=== PATIENT | female | born 1985 | race American Indian/Alaskan Native ===

== ENCOUNTER 2016-11-04 18:51 | Emergency (ER) | payer OTHER ==
[2016-11-04 20:10] VITALS: BP 130/86
[2016-11-04] MEDS ORDERED: NORCO 5/325 PO ONE (20:47)
[2016-11-04] MEDS ORDERED: MOTRIN PO ONE (20:47)
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
--- NOTE | 2016-11-05 09:50 | XRay Report ---
Right hand 3 views: History: Impact, pain. Findings: There is fracture noted diaphysis of fifth metacarpal right hand. No dislocations. Impression: Fracture fifth metacarpal.
== END 2016-11-04 22:30 | disposition home or self-care (01) ==
LOC: ED 18:51
DX: S62.306A Unspecified fracture of fifth metacarpal bone, right hand, initial encounter for closed fracture (principal); F41.9 Anxiety disorder, unspecified; F32.9 Major depressive disorder, single episode, unspecified; F17.200 Nicotine dependence, unspecified, uncomplicated; Y04.2XXA Assault by strike against or bumped into by another person, initial encounter; Y93.89 Activity, other specified; Y92.89 Other specified places as the place of occurrence of the external cause; Y99.8 Other external cause status

== ENCOUNTER 2017-12-08 11:24 | Emergency (ER) | payer OTHER ==
[2017-12-08 11:31] VITALS: BP 134/95
--- NOTE | 2017-12-08 12:47 | Emergency Department Report ---
Chief Complaint: Nausea/Vomiting/Diarrhea Stated Complaint: RIGHT FLANK PAIN Time Seen by Provider: 12/08/17 12:42 - HPI History of Present Illness: 32-year-old [place] female presents to the emergency department with a two- week history of nausea and vomiting. More recently she also has a little bit of flank and upper abdominal pain. Patient has concern that she could be as she says that she took 2 tests at home and one was negative and the other was positive. She thinks that her last menstrual cycle was at the end of November but says that it was shorter and less significant than usual. She denies any other past mental history. No fever, vaginal bleeding or discharge, or dysuria. - ROS Review of Systems: Positive for nausea and vomiting, abdominal discomfort Negative for vaginal bleeding or discharge, dysuria, fever, back pain. - Exam Vital Signs: Vital Signs 12/08/17 11:29 Temperature 98.2 F Pulse Rate 66 Respiratory 18 Rate Blood Pressure 134/95 O2 Sat by Pulse 100 Oximetry Physical Exam: Heart and lungs sounds normal auscultation. No abdominal pain to palpation. She is awake and alert. MSE screening note: Focused history and physical exam performed. Due to findings the following was ordered: Patient will have a CBC, CMP, urinalysis and urine test. She'll be reevaluated on the fast track side. ED Disposition for MSE Condition: Stable Referrals: PRIMARY CARE [Primary Care Provider] - 3-5 Days
[2017-12-08 13:46] LABS: HCG Qualitative,Urine Negative (Negative)
[2017-12-08 13:50] LABS: Bilirubin,Urine NEG (Negative); Blood,Urine SM (Negative); Color,Urine Yellow (Yellow); Mucus,Urine 3+ /HPF; Urobilinogen,Urine < 2.0 mg/dL (<2.0)
== END 2017-12-08 16:58 ==
LOC: ED 11:24
DX: R11.2 Nausea with vomiting, unspecified (principal); R19.7 Diarrhea, unspecified; R10.10 Upper abdominal pain, unspecified
CPT/HCPCS: 36415; 81001; 81025; 84702; 99283

== ENCOUNTER 2017-12-10 21:15 | Emergency (ER) | payer OTHER ==
[2017-12-10 22:19] VITALS: BP 116/86
[2017-12-10 22:42] LABS: Basophils % (Auto) 0.4 % (0.0-1.8); Eosinophils # (Auto) 0.1 K/mm3 (0.0-0.4); Hematocrit 38.9 % (30.3-42.9); Hemoglobin 13.4 gm/dl (10.1-14.3); Lymphocytes # (Auto) 1.7 K/mm3 (1.2-5.4); Lymphocytes % (Auto) 17.2 % (13.4-35.0); Mean Corpuscular HGB Conc 34 % (30-34); Mean Corpuscular Hemoglobin 29 pg (28-32); Mean Corpuscular Volume 84 fl (79-97); Monocytes # (Auto) 0.9 K/mm3 (0.0-0.8); Monocytes % (Auto) 8.9 % (0.0-7.3); Platelet Count 288 K/mm3 (140-440); Red Blood Count 4.62 M/mm3 (3.65-5.03); Red Cell Distribution Width 16.8 % (13.2-15.2)
[2017-12-10 22:54] LABS: Alanine Aminotransferase 11 units/L (7-56); Albumin 4.4 g/dL (3.9-5); BUN/Creatinine Ratio 16; Blood Urea Nitrogen 16 mg/dL (7-17); Calcium 9.1 mg/dL (8.4-10.2); Hemolysis Index 3
[2017-12-10 23:07] LABS: HCG Qualitative,Urine Negative (Negative)
[2017-12-10 23:11] LABS: Bacteria,Urine 1+ /HPF (Negative); Bilirubin,Urine NEG (Negative); Blood,Urine NEG (Negative); Color,Urine Yellow (Yellow); Mucus,Urine 3+ /HPF
== END 2017-12-10 22:28 | disposition left against medical advice (07) ==
LOC: ED 21:15
DX: R10.9 Unspecified abdominal pain (principal); R42 Dizziness and giddiness; R11.0 Nausea; Z53.21 Procedure and treatment not carried out due to patient leaving prior to being seen by health care provider
CPT/HCPCS: 36415; 80053; 81001; 81025; 85025

== ENCOUNTER 2018-11-02 12:45 | Emergency (ER) | payer OTHER ==
[2018-11-02 12:53] VITALS: BP 154/96
[2018-11-02] MEDS ORDERED: IBUPROFEN PO ONE (13:23)
--- NOTE | 2018-11-02 13:50 | XRay Report ---
RIGHT SHOULDER, 3 VIEWS: HISTORY: right shoulder pain. Normal bone mineralization. No acute osseous injury or joint pathology is detected. The soft tissues are unremarkable. IMPRESSION: Right shoulder within normal limits.
--- NOTE | 2018-11-02 13:50 | XRay Report ---
RIGHT KNEE, 3 views: History: Right knee pain. The bony architecture is intact without evidence of fracture or dislocation. No significant soft tissue abnormality is seen. IMPRESSION: Normal right knee.
--- NOTE | 2018-11-02 15:35 | Emergency Department Report ---
ED Extremity Problem HPI - General Chief complaint: Weakness Stated complaint: RT SIDE WEAKNESS Time Seen by Provider: 11/02/18 13:10 Source: patient Mode of arrival: Ambulatory Limitations: No Limitations - History of Present Illness Initial comments: Patient is a 33-year-old female who is here complaining of pain to her right knee and right shoulder. Patient states this started last night. Patient cannot identify a cause. She states she has not had any slips falls. Patient states that she occasionally will have pain in her right knee is similar to pain she has today. Patient states when she bends her knee she feels a clicking sensation. Patient denies any cough cold congestion fevers chills rash or nausea vomiting. Patient states the pain is 8 out of 10 in severity in both joints. Patient states that her range of motion is less secondary to pain. Severity scale (0 -10): 6 - Related Data Previous Rx's Medication Instructions Recorded Last Taken Type Cyclobenzaprine [Flexeril] 10 mg PO TID PRN #20 tablet 11/04/16 Unknown Rx HYDROcodone/APAP 5-325 [[place] 1 - 2 each PO Q6HR PRN #30 tablet 11/04/16 Unknown Rx 5/325] Ibuprofen [Ibu] 800 mg PO Q8H PRN #20 tablet 11/02/18 Unknown Rx traMADol [Ultram] 50 mg PO Q6HR PRN #12 tablet 11/02/18 Unknown Rx Allergies Allergy/AdvReac Type Severity Reaction Status Date / Time Penicillins Allergy Rash Verified 11/02/18 12:47 ED Review of Systems ROS: Stated complaint: RT SIDE WEAKNESS Other details as noted in HPI Comment: All other systems reviewed and negative ED Past Medical Hx - Past Medical History Hx Psychiatric Treatment: Yes (Depression, Anxiety) - Surgical History Past Surgical History?: No - Social History Smoking Status: Current Every Day Smoker Substance Use Type: None - Medications Home Medications: Home Medications Medication Instructions Recorded Confirmed Last Taken Type Cyclobenzaprine [Flexeril] 10 mg PO TID PRN #20 tablet 11/04/16 Unknown Rx HYDROcodone/APAP 5-325 [[place] 1 - 2 each PO Q6HR PRN #30 tablet 11/04/16 Unknown Rx 5/325] Ibuprofen [Ibu] 800 mg PO Q8H PRN #20 tablet 11/02/18 Unknown Rx traMADol [Ultram] 50 mg PO Q6HR PRN #12 tablet 11/02/18 Unknown Rx ED Physical Exam - General Limitations: No Limitations General appearance: alert, in no apparent distress - Head Head exam: Present: atraumatic, normocephalic - Eye Eye exam: Present: normal appearance - ENT ENT exam: Present: mucous membranes moist - Neck Neck exam: Present: normal inspection - Respiratory Respiratory exam: Present: normal lung sounds bilaterally. Absent: respiratory distress, wheezes, rales, rhonchi - Cardiovascular Cardiovascular Exam: Present: regular rate, normal rhythm. Absent: systolic murmur, diastolic murmur, rubs, gallop - GI/Abdominal GI/Abdominal exam: Present: soft, normal bowel sounds. Absent: distended, tenderness, guarding - Extremities Exam Extremities exam: Present: normal inspection, other (patient is walking with a lap however she has full range of motion to the right knee. There is no swelling erythema warmth. There is no crepitus. Patient has a normal exam to the right shoulder as well will full range of motion.) - Back Exam Back exam: Present: normal inspection - Neurological Exam Neurological exam: Present: alert, oriented X3 - Psychiatric Psychiatric exam: Present: normal affect, normal mood - Skin Skin exam: Present: warm, dry, intact, normal color. Absent: rash ED Course Vital Signs 11/02/18 11/02/18 12:51 13:20 Temperature 98.0 F Pulse Rate 79 Respiratory 18 18 Rate Blood Pressure 154/96 O2 Sat by Pulse 100 Oximetry ED Medical Decision Making - Radiology Data X-ray of the right shoulder right knee are within normal limits. - Medical Decision Making Patient has a essentially normal physical exam to her joints however she is having joint pain. Patient states pain started last night she cannot think of a reason why. Patient will be referred to orthopedics. No life-threatening emergency has been found. The emergency department. Critical care attestation.: If time is entered above; I have spent that time in minutes in the direct care of this critically ill patient, excluding procedure time. ED Disposition Clinical Impression: Arthropathy Disposition: DC-01 TO HOME OR SELFCARE Is pt being admited?: No Does the pt Need Aspirin: No Condition: Stable Instructions: Musculoskeletal Pain (ED), RICE Therapy (ED) Referrals: SERGE MEJIA MD [Staff Physician] - 3-5 Days Time of Disposition: 15:35
== END 2018-11-02 16:02 | disposition home or self-care (01) ==
LOC: ED 12:45
DX: M12.9 Arthropathy, unspecified (principal); F32.9 Major depressive disorder, single episode, unspecified; F41.9 Anxiety disorder, unspecified; F17.200 Nicotine dependence, unspecified, uncomplicated; Z88.0 Allergy status to penicillin
CPT/HCPCS: 99283

== ENCOUNTER 2019-01-16 17:59 | Emergency (ER) | payer OTHER ==
--- NOTE | 2019-01-16 18:13 | Emergency Department Report ---
Blank Doc - Documentation Documentation: This is a 33-year-old female that presents with intermittent headaches x1 week. Denies any head trauma or injuries. Denies any blurry vision. Denies any n/v. Denies any other complaints or symptoms. Exam: normal neuro exam This initial assessment/diagnostic orders/clinical plan/treatment(s) is/are subject to change based on patient's health status, clinical progression and re- assessment by fellow clinical providers in the ED. Further treatment and workup at subsequent clinical providers discretion. Patient/guardians urged not to elope from the ED as their condition may be serious if not clinically assessed and managed. Initial orders include: 1- Patient sent to [facility] for further evaluation and treatment
[2019-01-16] MEDS ORDERED: DECADRON IM ONE (20:19)
[2019-01-16] MEDS ORDERED: BENADRYL PO ONE (20:19)
[2019-01-16] MEDS ORDERED: TYLENOL PO ONE (20:19)
[2019-01-16] MEDS ORDERED: REGLAN PO ONE (20:19)
--- NOTE | 2019-01-16 22:01 | Emergency Department Report ---
ED Headache HPI - General Chief Complaint: Headache Stated Complaint: CONSTANT HEADACHE Time Seen by Provider: 01/16/19 18:11 - History of Present Illness Initial Comments: This is a 33-year-old female that presents with intermittent headaches x1 week. Denies any head trauma or injuries. Denies any blurry vision. Denies any n/v. Denies any other complaints or symptoms. hx of occassional headache some location and intensity Timing/Duration: 1 week Quality: moderate, achy, pressure Head Injury Location: frontal, parietal Recent Head Trauma: no recent headache/trauma, occasional headaches Associated Symptoms: denies: fatigue, facial pain, fever/chills, nausea/vomiting, nasal congestion, nasal drainage, numbness in legs/feet, sinus infection, stiff neck, vision changes, weakness Allergies/Adverse Reactions: Allergies Penicillins Allergy (Verified 11/02/18 12:47) Rash Home Medications: Ambulatory Orders Cyclobenzaprine [Flexeril] 10 mg PO TID PRN #20 tablet 11/04/16 HYDROcodone/APAP 5-325 [[place] 5/325] 1 - 2 each PO Q6HR PRN #30 tablet 11/04/16 Ibuprofen [Ibu] 800 mg PO Q8H PRN #20 tablet 11/02/18 traMADol [Ultram] 50 mg PO Q6HR PRN #12 tablet 11/02/18 Acetaminophen [Acetaminophen TAB] 1,000 mg PO Q6HR PRN #30 tablet 01/16/19 Metoclopramide [Reglan] 10 mg PO Q6H PRN #30 tablet 01/16/19 diphenhydrAMINE [Benadryl CAP] 25 mg PO Q6HR PRN #30 capsule 01/16/19 ED Review of Systems ROS: Stated complaint: CONSTANT HEADACHE Other details as noted in HPI Constitutional: denies: chills, fever Eyes: denies: eye pain, eye discharge, vision change ENT: denies: ear pain, throat pain Respiratory: denies: cough, shortness of breath, wheezing Cardiovascular: denies: chest pain, palpitations Endocrine: no symptoms reported Gastrointestinal: denies: abdominal pain, nausea, diarrhea Genitourinary: denies: urgency, dysuria, discharge Musculoskeletal: denies: back pain, joint swelling, arthralgia Skin: denies: rash, lesions Neurological: headache. denies: weakness, numbness, paresthesias, confusion, abnormal gait, vertigo Psychiatric: denies: anxiety, depression Hematological/Lymphatic: denies: easy bleeding, easy bruising ED Past Medical Hx - Past Medical History Previous Medical History?: Yes Hx Psychiatric Treatment: Yes (Depression, Anxiety) - Surgical History Past Surgical History?: No - Social History Smoking Status: Current Every Day Smoker Substance Use Type: None - Medications Home Medications: Home Medications Medication Instructions Recorded Confirmed Last Taken Type Cyclobenzaprine [Flexeril] 10 mg PO TID PRN #20 tablet 11/04/16 Unknown Rx HYDROcodone/APAP 5-325 [[place] 1 - 2 each PO Q6HR PRN #30 tablet 11/04/16 Unknown Rx 5/325] Ibuprofen [Ibu] 800 mg PO Q8H PRN #20 tablet 11/02/18 Unknown Rx traMADol [Ultram] 50 mg PO Q6HR PRN #12 tablet 11/02/18 Unknown Rx Acetaminophen [Acetaminophen TAB] 1,000 mg PO Q6HR PRN #30 tablet 01/16/19 Unknown Rx Metoclopramide [Reglan] 10 mg PO Q6H PRN #30 tablet 01/16/19 Unknown Rx diphenhydrAMINE [Benadryl CAP] 25 mg PO Q6HR PRN #30 capsule 01/16/19 Unknown Rx ED Physical Exam - General Limitations: No Limitations General appearance: alert, in no apparent distress - Head Head exam: Present: atraumatic, normocephalic - Eye Eye exam: Present: normal appearance, PERRL, EOMI, nystagmus. Absent: conjunctival injection, periorbital swelling, periorbital tenderness Pupils: Present: normal accommodation - ENT ENT exam: Present: normal orophraynx, mucous membranes moist, TM's normal bilaterally, normal external ear exam - Neck Neck exam: Present: normal inspection, full ROM. Absent: tenderness, meningismus, lymphadenopathy, thyromegaly - Respiratory Respiratory exam: Present: normal lung sounds bilaterally. Absent: respiratory distress, wheezes, stridor, chest wall tenderness - Cardiovascular Cardiovascular Exam: Present: regular rate, normal rhythm, normal heart sounds. Absent: systolic murmur, diastolic murmur, rubs, gallop - GI/Abdominal GI/Abdominal exam: Present: soft, normal bowel sounds. Absent: distended, tende rness, bruit, hernia - Rectal Rectal exam: Present: deferred - Extremities Exam Extremities exam: Present: normal inspection, full ROM, normal capillary refill - Back Exam Back exam: Present: normal inspection, full ROM. Absent: tenderness, CVA tenderness (R), CVA tenderness (L), muscle spasm, paraspinal tenderness, vertebral tenderness, rash noted - Neurological Exam Neurological exam: Present: alert, oriented X3, CN II-XII intact, normal gait, reflexes normal - Expanded Neurological Exam Expanded Patient oriented to: Present: person, place, time Speech: Present: fluid speech Cranial nerves: EOM's Intact: Normal, Gag Reflex: Normal, Tongue Deviation: Normal, Nystagmus: Normal, Facial Sensation: Normal Cerebellar function: Finger to Nose: Normal, Heel to Romeo: Normal, Romberg: Normal Upper motor neuron: Josh Neglect: Normal, Pronator Drift: Normal, Babinski Sign: Normal, Sensory Extinction: Normal Sensory exam: Upper Extremity Light Touch: Normal, Upper Extremity Pin Prick: Normal, Upper Extremity Temperature: Normal, UE 2 Point Discrimination: Normal, Lower Extremity Light Touch: Normal, Lower Extremity Pin Prick: Normal, Lower Extremity Temperature: Normal, LE 2 Point Discrimination: Normal Motor strength exam: RUE: 5, LUE: 5, RLE: 5, LLE: 5 DTR: bicep (R): 2+, bicep (L): 2+, ankle (R): 2+, ankle (L): 2+ Best Eye Response ([place]): (4) open spontaneously Best Motor Response ([place]): (6) obeys commands Best Verbal Response ([place]): (5) oriented Fredo Total: 15 - Psychiatric Psychiatric exam: Present: normal affect, normal mood - Skin Skin exam: Present: warm, dry, intact, normal color. Absent: rash ED Course Vital Signs 01/16/19 01/16/19 18:11 20:50 Temperature 98.6 F 98.6 F Pulse Rate 65 109 H Respiratory 16 16 Rate Blood Pressure 149/98 Blood Pressure 134/97 [Left] O2 Sat by Pulse 100 Oximetry ED Medical Decision Making - Medical Decision Making this is an acute headache improved with medications given in ed plan dc to home in stable condition pt will follow up wiht pcp in 2-3 days pt given referral to [facility] and Neurology. pt is currently a/o x 3 ambulatory with steady gait at this time headache is pain is 2/10 Critical care attestation.: If time is entered above; I have spent that time in minutes in the direct care of this critically ill patient, excluding procedure time. ED Disposition Clinical Impression: Headache Qualifiers: Headache type: unspecified Headache chronicity pattern: acute headache Intractability: not intractable Qualified Code(s): R51 - Headache Disposition: TO HOME OR SELFCARE Is pt being admited?: No Does the pt Need Aspirin: No Condition: Stable Instructions: Acute Headache (ED) Prescriptions: Acetaminophen [Acetaminophen TAB] 1,000 mg PO Q6HR PRN #30 tablet PRN Reason: Headache diphenhydrAMINE [Benadryl CAP] 25 mg PO Q6HR PRN #30 capsule PRN Reason: Headache Metoclopramide [Reglan] 10 mg PO Q6H PRN #30 tablet PRN Reason: Headache Referrals: [facility] [Outside] - 3-5 Days PANKAJ DAILY MD [Referring] - 3-5 Days Forms: Work/School Release Form(ED) Time of Disposition: 22:00
[2019-01-16 22:26] VITALS: BP 130/87
== END 2019-01-16 22:26 | disposition home or self-care (01) ==
LOC: ED 17:59
DX: R51 Headache (principal); F17.200 Nicotine dependence, unspecified, uncomplicated; Z88.0 Allergy status to penicillin; Z79.899 Other long term (current) drug therapy
CPT/HCPCS: 96372; 99282; J1100

== ENCOUNTER 2019-03-13 23:41 | Emergency (ER) | payer OTHER ==
[2019-03-14] MEDS ORDERED: TYLENOL PO ONE (02:37)
[2019-03-14] MEDS ORDERED: DECADRON IM ONE (02:37)
[2019-03-14] MEDS ORDERED: REGLAN PO ONE (02:37)
[2019-03-14] MEDS ORDERED: BENADRYL PO ONE (02:37)
--- NOTE | 2019-03-14 03:21 | Emergency Department Report ---
ED Headache HPI - General Chief Complaint: Headache Stated Complaint: MIGRAINES AND RIGHT KNEE PAIN Time Seen by Provider: 03/14/19 02:23 - History of Present Illness Initial Comments: Patient 33-year-old female with a history of migraine headaches who presents for headache 2 days frontal there is no photophobia no nausea vomiting headache and usual location duration and intensity patient states she's had Tylenol but no relief denies fall injury or trauma Quality: moderate, sharp Head Injury Location: frontal Recent Head Trauma: occasional headaches Associated Symptoms: denies symptoms Allergies/Adverse Reactions: Allergies Penicillins Allergy (Verified 11/02/18 12:47) Rash Home Medications: Ambulatory Orders Cyclobenzaprine [Flexeril] 10 mg PO TID PRN #20 tablet 11/04/16 HYDROcodone/APAP 5-325 [[place] 5/325] 1 - 2 each PO Q6HR PRN #30 tablet 11/04/16 Ibuprofen [Ibu] 800 mg PO Q8H PRN #20 tablet 11/02/18 traMADol [Ultram] 50 mg PO Q6HR PRN #12 tablet 11/02/18 Acetaminophen [Acetaminophen TAB] 1,000 mg PO Q6HR PRN #30 tablet 01/16/19 Metoclopramide [Reglan] 10 mg PO Q6H PRN #30 tablet 01/16/19 diphenhydrAMINE [Benadryl CAP] 25 mg PO Q6HR PRN #30 capsule 01/16/19 Acetaminophen [Acetaminophen TAB] 1,000 mg PO Q6HR #30 tablet 03/14/19 Metoclopramide [Reglan] 10 mg PO Q6H PRN #30 tablet 03/14/19 diphenhydrAMINE [Benadryl CAP] 25 mg PO Q6HR PRN #30 capsule 03/14/19 ED Review of Systems ROS: Stated complaint: MIGRAINES AND RIGHT KNEE PAIN Other details as noted in HPI Constitutional: denies: chills, fever Eyes: denies: eye pain, eye discharge, vision change ENT: denies: ear pain, throat pain Respiratory: denies: cough, shortness of breath, wheezing Cardiovascular: denies: chest pain, palpitations Endocrine: no symptoms reported Gastrointestinal: as per HPI Genitourinary: denies: urgency, dysuria, discharge Musculoskeletal: denies: back pain, joint swelling, arthralgia Skin: denies: rash, lesions Neurological: headache. denies: weakness, numbness, paresthesias, confusion, abnormal gait, vertigo Psychiatric: denies: anxiety, depression Hematological/Lymphatic: denies: easy bleeding, easy bruising ED Past Medical Hx - Past Medical History Hx Psychiatric Treatment: Yes (Depression, Anxiety) - Surgical History Past Surgical History?: No - Social History Smoking Status: Current Every Day Smoker Substance Use Type: Alcohol - Medications Home Medications: Home Medications Medication Instructions Recorded Confirmed Last Taken Type Cyclobenzaprine [Flexeril] 10 mg PO TID PRN #20 tablet 11/04/16 Unknown Rx HYDROcodone/APAP 5-325 [[place] 1 - 2 each PO Q6HR PRN #30 tablet 11/04/16 Unknown Rx 5/325] Ibuprofen [Ibu] 800 mg PO Q8H PRN #20 tablet 11/02/18 Unknown Rx traMADol [Ultram] 50 mg PO Q6HR PRN #12 tablet 11/02/18 Unknown Rx Acetaminophen [Acetaminophen TAB] 1,000 mg PO Q6HR PRN #30 tablet 01/16/19 Unknown Rx Metoclopramide [Reglan] 10 mg PO Q6H PRN #30 tablet 01/16/19 Unknown Rx diphenhydrAMINE [Benadryl CAP] 25 mg PO Q6HR PRN #30 capsule 01/16/19 Unknown Rx Acetaminophen [Acetaminophen TAB] 1,000 mg PO Q6HR #30 tablet 03/14/19 Unknown Rx Metoclopramide [Reglan] 10 mg PO Q6H PRN #30 tablet 03/14/19 Unknown Rx diphenhydrAMINE [Benadryl CAP] 25 mg PO Q6HR PRN #30 capsule 03/14/19 Unknown Rx ED Physical Exam - General Limitations: No Limitations General appearance: alert, in no apparent distress - Head Head exam: Present: atraumatic, normocephalic, normal inspection - Eye Eye exam: Present: normal appearance, PERRL, EOMI. Absent: conjunctival injection, nystagmus Pupils: Present: normal accommodation - ENT ENT exam: Present: normal orophraynx, mucous membranes moist, TM's normal bilaterally, normal external ear exam - Neck Neck exam: Present: normal inspection, full ROM. Absent: tenderness, meningis mus, thyromegaly - Respiratory Respiratory exam: Present: normal lung sounds bilaterally. Absent: respiratory distress, wheezes, stridor, chest wall tenderness - Cardiovascular Cardiovascular Exam: Present: regular rate, normal rhythm, normal heart sounds. Absent: systolic murmur, diastolic murmur, rubs, gallop - GI/Abdominal GI/Abdominal exam: Present: soft, normal bowel sounds. Absent: distended, tenderness, guarding, rebound, rigid, bruit, hernia - Rectal Rectal exam: Present: deferred - Extremities Exam Extremities exam: Present: normal inspection, full ROM, tenderness - Back Exam Back exam: Present: normal inspection, full ROM, tenderness. Absent: CVA tenderness (R), CVA tenderness (L), muscle spasm, paraspinal tenderness, vertebral tenderness, rash noted - Neurological Exam Neurological exam: Present: alert, oriented X3, CN II-XII intact, normal gait, reflexes normal. Absent: motor sensory deficit - Expanded Neurological Exam Expanded Patient oriented to: Present: person, place, time Speech: Present: fluid speech Cranial nerves: EOM's Intact: Normal, Gag Reflex: Normal, Tongue Deviation: Normal, Nystagmus: Normal, Facial Sensation: Normal Cerebellar function: Finger to Nose: Normal, Heel to Romeo: Normal Upper motor neuron: Josh Neglect: Normal, Pronator Drift: Normal, Babinski Sign: Normal, Sensory Extinction: Normal Motor strength exam: RUE: 5, LUE: 5, RLE: 5, LLE: 5 DTR: bicep (R): 2+, bicep (L): 2+, ankle (R): 2+, ankle (L): 2+ Best Eye Response ([place]brook): (4) open spontaneously Best Motor Response (Fredo): (6) obeys commands Best Verbal Response ([place]): (5) oriented [place] Total: 15 - Psychiatric Psychiatric exam: Present: normal affect, normal mood - Skin Skin exam: Present: warm, dry, intact, normal color. Absent: rash ED Course Vital Signs 03/13/19 23:49 Temperature 98.1 F Pulse Rate 71 Respiratory 18 Rate Blood Pressure 144/101 O2 Sat by Pulse 100 Oximetry ED Medical Decision Making - Medical Decision Making Headache is improved to 2/10 plan we'll DC to home with Tylenol Benadryl Reglan patient will follow up PCP and to 3 days return to ED should symptoms worsen patient verbalized agreement and understanding of discharge plan DC to home in stable condition at this time patient is alert oriented 3 hammertoe was steady gait there is no dizziness no lightheadedness no nausea vomiting no other symptoms Critical care attestation.: If time is entered above; I have spent that time in minutes in the direct care of this critically ill patient, excluding procedure time. ED Disposition Clinical Impression: Acute headache Qualifiers: Headache type: unspecified Intractability: not intractable Qualified Code(s): R51 - Headache Disposition: DC-01 TO HOME OR SELFCARE Is pt being admited?: No Does the pt Need Aspirin: No Condition: Stable Instructions: Acute Headache (ED) Prescriptions: Acetaminophen [Acetaminophen TAB] 1,000 mg PO Q6HR #30 tablet diphenhydrAMINE [Benadryl CAP] 25 mg PO Q6HR PRN #30 capsule PRN Reason: Headache Metoclopramide [Reglan] 10 mg PO Q6H PRN #30 tablet PRN Reason: Headache Referrals: TAYE CORRAL MD [Primary Care Provider] - 3-5 Days Forms: Work/School Release Form(ED) Time of Disposition: 03:26
[2019-03-14 03:41] VITALS: BP 147/98
== END 2019-03-14 03:39 | disposition home or self-care (01) ==
LOC: ED 23:41
DX: G43.909 Migraine, unspecified, not intractable, without status migrainosus (principal); F41.9 Anxiety disorder, unspecified; F32.9 Major depressive disorder, single episode, unspecified; F17.200 Nicotine dependence, unspecified, uncomplicated; Z88.0 Allergy status to penicillin
CPT/HCPCS: 96372; J1100